=== PATIENT | male | born 1995 | race African-American/Black ===

== ENCOUNTER 2020-06-06 21:26 | Inpatient (IN) | payer MEDICAID ==
[~2020-06-06] VITALS: Ht 180.3 cm; Wt 68.2 kg
[2020-06-06 21:49] LABS: BILIRUBIN 3+ (NEGATIVE); KETONE NEGATIVE (NEGATIVE); NITRITE NEGATIVE (NEGATIVE); UROBILINOGEN NORMAL mg/dL (< 2)
[2020-06-06 21:56] LABS: UDS - AMPHET POSITIVE QUAL (NEGATIVE); UDS - BARB NEGATIVE QUAL (NEGATIVE); UDS - BENZO NEGATIVE QUAL (NEGATIVE); UDS - COCAINE NEGATIVE QUAL (NEGATIVE); UDS - OPIATE NEGATIVE QUAL (NEGATIVE); UDS - PCP NEGATIVE QUAL (NEGATIVE); UDS - THC POSITIVE QUAL (NEGATIVE)
[2020-06-06 22:14] LABS: HEMATOCRIT 49.3 % (42.0-54.0); HEMOGLOBIN 17.7 g/dL (13.5-17.5); LYMPHOCYTE ABS# 1.14 10x3/uL (1.32-3.57); MCH 31.6 pg (26.0-34.0); MCHC 35.9 g/dL (31.0-37.0); MEAN PLATELET VOLUME 10.5 fL (7.4-10.4); NEUTROPHIL ABS# 2.04 10x3/uL (1.78-5.38); PLATELET COUNT 120 10x3/uL (130-400); RDW 12.9 % (11.5-14.5); WBC 3.7 10x3/uL (4.8-10.8)
[2020-06-06 22:23] LABS: CALC OSMOLALITY 264 mosm/kg (275-300); CARBON DIOXIDE 25.5 mmol/L (21.0-32.0); CHLORIDE - SERUM 98 mmol/L (98-107); CREATININE - SERUM 0.8 mg/dL (0.6-1.3); GLUCOSE 75 mg/dL (74-106); POTASSIUM - SERUM 4.2 mmol/L (3.5-5.1); SODIUM 134 mmol/L (136-145); UREA NITROGEN 7 mg/dL (7-18); eGFR NON AFRICAN AMERICAN > 90 mL/min (90-120)
[2020-06-06 22:34] LABS: ALKALINE PHOSPHATASE 187 U/L (30-120); ALT (SGPT) 4112 U/L (10-68); AMYLASE - SERUM 35 U/L (25-115); BILIRUBIN - TOTAL 6.96 mg/dL (0.2-1.3); LIPASE 71 U/L (73-393)
[2020-06-06 22:37] LABS: EOSINOPHILS 6 % (0-7); LYMPHOCYTES 34 % (15-50); MONOCYTES 13 % (2-11); NEUTROPHILS 44 % (40-80); PLATELET ESTIMATE DECREASED
[2020-06-06 22:50] LABS: INR 1.56 (0.85-1.17); PROTIME 17.3 SECONDS (11.6-15.0)
[2020-06-06 23:26] VITALS: BP 112/73
[2020-06-07] VITALS (8 sets, daily range): BP systolic 103–148; BP diastolic 51–79; Ht 180.3 cm; Wt 68.2 kg
--- NOTE | 2020-06-07 05:55 | NUR ---
REPOSITIONED PT NG TUBE, HEARD AIR BY 2 NURSES AND HAD RETURN
[2020-06-07 05:56] LABS: BASOPHILS 1.1 % (0-2); EOSINOPHILS 3.5 % (0-7); HEMATOCRIT 44.4 % (42.0-54.0); HEMOGLOBIN 15.9 g/dL (13.5-17.5); LYMPHOCYTE ABS# 1.25 10x3/uL (1.32-3.57); LYMPHOCYTES 34.1 % (15-50); MCH 31.1 pg (26.0-34.0); MCHC 35.8 g/dL (31.0-37.0); MCV 86.9 fL (80.0-100.0); MONOCYTES 11.7 % (2-11); NEUTROPHIL ABS# 1.82 10x3/uL (1.78-5.38); NEUTROPHILS 49.6 % (40-80); PLATELET COUNT 132 10x3/uL (130-400); RBC 5.11 10x6/uL (4.20-6.10); RDW 12.7 % (11.5-14.5); WBC 3.7 10x3/uL (4.8-10.8)
[2020-06-07 06:40] LABS: ALBUMIN 3.4 g/dL (3.4-5.0); ALKALINE PHOSPHATASE 158 U/L (30-120); BILIRUBIN - TOTAL 6.53 mg/dL (0.2-1.3); CALC OSMOLALITY 269 mosm/kg (275-300); CALCIUM 8.5 mg/dL (8.5-10.1); CARBON DIOXIDE 25.5 mmol/L (21.0-32.0); CHLORIDE - SERUM 103 mmol/L (98-107); CHOL - HDL RATIO 4.2 ratio (2.3-4.9); CHOLESTEROL, TOTAL 93 mg/dL (0-200); CREATININE - SERUM 0.7 mg/dL (0.6-1.3); GLUCOSE 101 mg/dL (74-106); HDL CHOLESTEROL 22 mg/dL (32-96); LDL CHOLESTEROL 54 mg/dL (0-100); LDL-HDL RATIO 2.5 ratio (1.5-3.5); MAGNESIUM - SERUM 1.9 mg/dL (1.8-2.4); PHOSPHOROUS 3.6 mg/dL (2.5-4.9); PROTEIN - SERUM 6.8 g/dL (6.4-8.2); SODIUM 136 mmol/L (136-145); TRIGLYCERIDE 87 mg/dL (30-200); UREA NITROGEN 7 mg/dL (7-18); eGFR NON AFRICAN AMERICAN > 90 mL/min (90-120)
[2020-06-07 06:44] LABS: AMYLASE - SERUM 51 U/L (25-115); LIPASE 171 U/L (73-393)
[2020-06-07 07:16] LABS: ALT (SGPT) 4064 U/L (10-68)
--- NOTE | 2020-06-07 08:33 | NUR ---
RESTING IN BED, NO DISTRESS NOTED, EYES CLOSED, NG TO LIS, FAMILY IN ROOM, CONT TO MONITOR
--- NOTE | 2020-06-07 11:40 | NUR ---
PT SLEEPING THIS AM, TRIED TO DO ADMISSION ASSESSMENT AND HISTORY AND PT KEPT FALLING ASLEEP, CONT TO MONITOR
[2020-06-08] VITALS: BP 137/82
--- NOTE | 2020-06-08 03:00 | NUR ---
I have reviewed this patient and I concur with the Shift Assessment completed by the Licensed Practical Nurse today this shift.
[2020-06-08 04:00] VITALS: BP 115/85
[2020-06-08 07:09] LABS: ALBUMIN 3.2 g/dL (3.4-5.0); ALKALINE PHOSPHATASE 155 U/L (30-120); BILIRUBIN - TOTAL 8.47 mg/dL (0.2-1.3); CALC OSMOLALITY 268 mosm/kg (275-300); CALCIUM 8.2 mg/dL (8.5-10.1); CARBON DIOXIDE 25.9 mmol/L (21.0-32.0); CHLORIDE - SERUM 101 mmol/L (98-107); CREATININE - SERUM 0.7 mg/dL (0.6-1.3); GLUCOSE 77 mg/dL (74-106); MAGNESIUM - SERUM 1.8 mg/dL (1.8-2.4); PHOSPHOROUS 2.8 mg/dL (2.5-4.9); POTASSIUM - SERUM 3.8 mmol/L (3.5-5.1); PROTEIN - SERUM 6.1 g/dL (6.4-8.2); SODIUM 136 mmol/L (136-145); UREA NITROGEN 6 mg/dL (7-18); eGFR NON AFRICAN AMERICAN > 90 mL/min (90-120)
[2020-06-08 07:21] LABS: ALT (SGPT) 4384 U/L (10-68)
[2020-06-08 07:23] LABS: BASOPHILS 0.8 % (0-2); EOSINOPHILS 2.3 % (0-7); HEMATOCRIT 42.4 % (42.0-54.0); HEMOGLOBIN 15.4 g/dL (13.5-17.5); LYMPHOCYTE ABS# 1.56 10x3/uL (1.32-3.57); LYMPHOCYTES 32.7 % (15-50); MCH 31.3 pg (26.0-34.0); MCHC 36.3 g/dL (31.0-37.0); MCV 86.2 fL (80.0-100.0); MEAN PLATELET VOLUME 10.1 fL (7.4-10.4); MONOCYTES 16.6 % (2-11); NEUTROPHIL ABS# 2.27 10x3/uL (1.78-5.38); NEUTROPHILS 47.6 % (40-80); RBC 4.92 10x6/uL (4.20-6.10)
[2020-06-08 07:25] LABS: PLATELET COUNT 160 10x3/uL (130-400); WBC 4.8 10x3/uL (4.8-10.8)
--- NOTE | 2020-06-08 08:00 | NUR ---
ASSESSMENT PER FLOW SHEET. PATIENT IS WITHOUT DISTRESS,BUT ANXIOUS THIS AM. PATIENT STATES HE WANTS FOOD AND WATER.FAMILY AT BEDSIDE.
--- NOTE | 2020-06-08 11:30 | NUR ---
ATTEMPTED IV RESITE. IV LEFT FOREARM LEAKING.DCD WITH CATH TIP INTACT.
[2020-06-08 12:52] VITALS: BP 117/71
[2020-06-08 20:00] VITALS: BP 104/61
[2020-06-09] VITALS: BP 100/56
--- NOTE | 2020-06-09 00:29 | NUR ---
rec'd chge of shift walking rounds in bed visitor in bed as well eyes closed resp. deep and even . will continue to monitor for any chges and follow current plan of care.
[2020-06-09 06:16] LABS: BASOPHILS 1.8 % (0-2); EOSINOPHILS 6.1 % (0-7); HEMATOCRIT 44.5 % (42.0-54.0); HEMOGLOBIN 15.9 g/dL (13.5-17.5); LYMPHOCYTE ABS# 1.98 10x3/uL (1.32-3.57); LYMPHOCYTES 44.5 % (15-50); MCH 30.9 pg (26.0-34.0); MCHC 35.7 g/dL (31.0-37.0); MCV 86.4 fL (80.0-100.0); MEAN PLATELET VOLUME 9.5 fL (7.4-10.4); MONOCYTES 19.1 % (2-11); NEUTROPHIL ABS# 1.27 10x3/uL (1.78-5.38); NEUTROPHILS 28.5 % (40-80); PLATELET COUNT 173 10x3/uL (130-400); RBC 5.15 10x6/uL (4.20-6.10); RDW 13.2 % (11.5-14.5); WBC 4.5 10x3/uL (4.8-10.8)
--- NOTE | 2020-06-09 06:31 | NUR ---
I have reviewed this patient and I concur with the Shift Assessment completed by the Licensed Practical Nurse today this shift.
[2020-06-09 06:42] LABS: ALBUMIN 3.2 g/dL (3.4-5.0); ALKALINE PHOSPHATASE 156 U/L (30-120); BILIRUBIN - TOTAL 8.45 mg/dL (0.2-1.3); CALC OSMOLALITY 274 mosm/kg (275-300); CALCIUM 8.5 mg/dL (8.5-10.1); CARBON DIOXIDE 26.6 mmol/L (21.0-32.0); CHLORIDE - SERUM 103 mmol/L (98-107); CREATININE - SERUM 0.8 mg/dL (0.6-1.3); GLUCOSE 87 mg/dL (74-106); MAGNESIUM - SERUM 1.9 mg/dL (1.8-2.4); POTASSIUM - SERUM 4.1 mmol/L (3.5-5.1); PROTEIN - SERUM 6.4 g/dL (6.4-8.2); SODIUM 139 mmol/L (136-145); UREA NITROGEN 6 mg/dL (7-18); eGFR NON AFRICAN AMERICAN > 90 mL/min (90-120)
[2020-06-09 06:43] LABS: ALT (SGPT) 3424 U/L (10-68)
--- NOTE | 2020-06-09 08:00 | NUR ---
ASSESSMENT PER FLOW SHEET. PATIENT WITHOUT DISTRESS. FAMILY IN ROOM.CALL LIGHT IN REACH
[2020-06-09 08:30] VITALS: BP 109/64
--- NOTE | 2020-06-09 08:50 | NUR ---
HAS BEEN OFF UNIT FOR 50 MIN. CALL TO MOM,EMERGENCY CONTACT. ZENY BURKS [phone]. MESSAGE LEFT FOR THEM TO CALL UNIT AND FOR PATIENT TO RETURN TO ROOM
--- NOTE | 2020-06-09 10:11 | NUR ---
CALL PLACED TO MOTHER AND SHE STATES HE IS ON HIS WAY BACK. SHE IS COMING ALSO TO MAKE SURE THAT HE REMAINS HERE
--- NOTE | 2020-06-09 10:20 | NUR ---
CALL FROM FAMILY STATES PATIENT WILL RETURN SOON.
--- NOTE | 2020-06-09 10:44 | NUR ---
BACK ON UNIT. STATES HE WENT AND ATE FOOD.
[2020-06-09 11:11] LABS: HEPATITIS C ANTIBODY <0.1 S/CO RAT (0.0-0.9)
[2020-06-09 13:16] VITALS: BP 112/55
--- NOTE | 2020-06-09 16:05 | NUR ---
DISCHARGE INSTRUCTIONS, STATES UNDERSTANDING. DECLINED WHEELCHAIR. LEFT AMBULATORY WITH FAMILY FOR TRANSPORT HOME.
--- NOTE | 2020-06-10 10:01 | EC ---
PATIENT:J CARLOS BURKS DATE OF SERVICE: 06/07/20 SEX: M MEDICAL RECORD: [id number] DATE OF : [birth year] LOCATION:[facility] AGE OF PATIENT: 24 ADMISSION DATE: 06/07/20 REFERRING PHYSICIAN: INTERPRETING PHYSICIAN: DAMIAN RABAGO MD ECHOCARDIOGRAM REPORT ECHO CHARGES 4 ECHO COMPLETE Date: 06/08/20 CLINICAL DIAGNOSIS: LVH, R/O VEG ECHOCARDIOGRAPHIC MEASUREMENTS (adult normal given) AC root (d.<3.7cm) 3.2 cm LV Septum d (<1.2 cm> 1.2 cm Valve Excursion 1.9 cm LV Septum (systole) 1.4 cm Left Atria (s.<4.0cm> 3.0 cm LVPW d(<1.2cm) 0.7 cm RV (d.<2.3cm) 3.0 cm LVPW (sytole) 0.8 cm LV diastole(<5.6CM) 4.6 cm MV E-F(>70mm/sec) cm LV systole 3.1 cm LVOT Diameter 2.1 cm MV exc.(>10mm) 1.3 cm Est.ejection fraction (50-75%) % DOPPLER: LVIT cm/sec A 44 cm/sec E 65 cm/sec LA cm/sec RVSP 17 mmHg LVOT 99 cm/sec AOP1/2T m/s Asc. Ao 149 cm/sec RVOT 71 cm/sec RA cm/sec PA 103 cm/sec AV Gradient Peak 8.9 mmHg AV Mean 4.5 mmHg AV Area 1.9 cm MV Gradient Peak 2.3 mmHg MV Mean 1.7 mmHg MV Area cm COMMENTS: Tube Bender Hand: Jaswinder PAK [employer] Extension Worker: 3 Dr. Garcia TAPE# Pericardial Effusion N DATE OF SERVICE: Adequate 2D, color-flow imaging, spectral Doppler, and M-Mode FINDINGS: No LVH. LV internal dimension is normal. Wall motion is normal. EF is greater than or equal to 55%. Aortic valve is tricuspid. No evidence of stenosis by Doppler interrogation. Left atrium is normal. Mitral valve shows no prolapse. Trivial MR. Right-sided chambers are grossly normal. Trivial TR. No evidence of vegetation in all 4 cardiac valves. ECHOCARDIOGRAM REPORT [id number] J CARLOS BURKS TRANSINT:[id number] Voice Confirmation ID: [id number] DOCUMENT ID: [id number] DAMIAN RABAGO MD at 1001 CC: [id number] DICTATION DATE: 06/09/20 08 [employer] ATTACHER: 06/09/20 0854 DIS IN 06/09/20 [place] [id number] [place] [id number]
== END 2020-06-09 16:07 | disposition home or self-care (01) | DRG 389 ==
LOC: D.ER 21:26 → D.MS 06-07 01:51
PROVIDERS: Family Medicine; ADMIT Emergency Medicine; ATTEND Emergency Medicine
DX: K56.609 Unspecified intestinal obstruction, unspecified as to partial versus complete obstruction (principal); B15.9 Hepatitis A without hepatic coma; E80.6 Other disorders of bilirubin metabolism; F15.10 Other stimulant abuse, uncomplicated; F12.10 Cannabis abuse, uncomplicated; F17.200 Nicotine dependence, unspecified, uncomplicated